=== PATIENT | male | born 1960 | race Caucasian/White ===

== ENCOUNTER → 2024-07-09 12:51 | Outpatient (REF) | payer MEDICARE, SELFPAY | LOC: RAD 12:51 | PROVIDERS: ATTENDING PHYSICIAN Urology | DX: N39.0 Urinary tract infection, site not specified (principal) | CPT/HCPCS: 74176 ==

== ENCOUNTER → 2024-12-06 07:08 | Outpatient (REF) | payer MEDICARE, SELFPAY | LOC: RAD 07:08 | PROVIDERS: ATTENDING PHYSICIAN Family Medicine; FAMILY PHYSICIAN Nurse Practitioner Gerontology | DX: M79.661 Pain in right lower leg (principal); S76.311A Strain of muscle, fascia and tendon of the posterior muscle group at thigh level, right thigh, initial encounter | CPT/HCPCS: 93971 ==

== ENCOUNTER → 2024-12-24 17:06 | Outpatient (REF) | payer MEDICARE, SELFPAY | LOC: RAD 17:06 | PROVIDERS: ATTENDING PHYSICIAN Nurse Practitioner Gerontology | DX: I10 Essential (primary) hypertension (principal); E78.2 Mixed hyperlipidemia; M25.561 Pain in right knee; S76.311A Strain of muscle, fascia and tendon of the posterior muscle group at thigh level, right thigh, initial encounter; E03.9 Hypothyroidism, unspecified; E11.65 Type 2 diabetes mellitus with hyperglycemia | CPT/HCPCS: 73502; 73564 ==

== ENCOUNTER 2025-02-13 16:31 | Emergency (ER) | payer MEDICARE, SELFPAY ==
[2025-02-13 16:31] VITALS: BMI 30.1
[2025-02-13 16:33] VITALS: BP 164/102
[2025-02-13 16:57] LABS: Urine Albumin 1+ (Neg - Trace); Urine Bilirubin Negative (Negative); Urine Character Clear (Clear); Urine Color Yellow; Urine Glucose Negative (Negative); Urine Ketone Negative (Negative); Urine Leukocyte 2+ (Negative); Urine Nitrite Negative (Negative); Urine Occult Blood Negative (Negative); Urine Urobilinogen Negative (Neg - 1+)
[2025-02-13 17:31] LABS: Urine Mucus Moderate; Urine Squamous Cell 0-2 /LPF (Few)
[2025-02-13 17:32] LABS: Urine Red Blood Cell 0-2 /HPF (0-2)
[2025-02-13 17:33] LABS: Urine Bacteria Moderate (Negative); Urine Sperm Seen; Urine White Cell 50-60 /HPF (0-5)
[2025-02-13 17:58] VITALS: BP 141/86
[2025-02-13 18:00] VITALS: BP 131/84; BP 141/86
[2025-02-13 18:30] VITALS: BP 127/76
[2025-02-13] MEDS: NSS 1000 IV (18:36)
[2025-02-13 18:47] LABS: % Basophils 0.4 % (0-2); % Eosinophils 1.3 % (0-6); % Immature Granulocytes 0.5 % (0-0.5); % Lymphocytes 27.6 % (20.5-51.1); % Monocytes 7.9 % (1.7-9.3); % Neutrophils 62.3 % (42.2-75.2); Absolute Eosinophils 0.1 10^3/uL (0-0.7); Absolute Immature Granulocytes 0.1 10^3/uL (0-0.05); Absolute Lymphocytes 2.5 10^3/uL (1.2-3.4); Absolute Monocytes 0.7 10^3/uL (0.1-0.6); Absolute Neutrophils 5.7 10^3/uL (1.4-6.5); Hemoglobin 12.6 g/dL (13.0-18.0); Mean Corpuscular Hgb 30.8 pg (27.0-31.0); Mean Corpuscular Volume 85.6 fL (80.0-94.0); Mean Platelet Volume 9.4 fL (7.4-10.4); Nucleated Red Blood Cells % 0 % (-); Platelet Count 200 10^3/uL (130-400); Red Blood Cell Count 4.09 10^6/uL (4.70-6.10); Red Cell Dist. Width 13.1 % (11.5-14.5); White Blood Cell Count 9.1 10^3/uL (4.8-10.8)
[2025-02-13 18:59] LABS: Lactic Acid 0.8 mmol/L (0.7-2.0)
[2025-02-13 19:00] VITALS: BP 153/83
[2025-02-13 19:11] LABS: ALT (SGPT) 39 U/L (0-50); AST (SGOT) 36 U/L (17-59); Albumin 4.4 g/dl (3.5-5.0); Alkaline Phosphatase 112 U/L (38-126); Blood Urea Nitrogen 21 mg/dl (9-20); Calcium 9.3 mg/dl (8.4-10.2); Carbon Dioxide 27 mmol/L (22-30); Chloride 107 mmol/L (98-107); Estimated Creatinine Clearance 102 ml/min; Glucose 109 mg/dl (70-99); Potassium 3.9 mmol/L (3.5-5.1); Sodium 140 mmol/L (135-145); Total Bilirubin 1.1 mg/dl (0.2-1.3); Total Protein 6.9 g/dl (6.3-8.2); eGFR > 60.00
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
[2025-02-13] MEDS: ROCEPHIN 1000 MG IV (20:05)
[2025-02-13 20:40] VITALS: BP 140/94
== END 2025-02-13 20:49 | disposition home or self-care (01) ==
LOC: EMR 16:31
PROVIDERS: Emergency Medicine; Physician Assistant; EMERGENCY PHYSICIAN Emergency Medicine
DX: N39.0 Urinary tract infection, site not specified (principal); I10 Essential (primary) hypertension; N28.1 Cyst of kidney, acquired; Z87.442 Personal history of urinary calculi
CPT/HCPCS: 99284; 96374; 96361; 74176; 80053; 81003; 81015; 83605; 85025; 87086

== ENCOUNTER 2025-02-16 15:27 | Observation (INO) | payer MEDICARE, SELFPAY ==
[2025-02-16] VITALS (8 sets, daily range): BP systolic 128–153; BP diastolic 71–100; PULSE 80–85; BMI 30.2; BMI 29.5
[2025-02-16 11:16] LABS: Urine Albumin Negative (Neg - Trace); Urine Bilirubin Negative (Negative); Urine Character Clear (Clear); Urine Color Yellow; Urine Glucose Negative (Negative); Urine Ketone Negative (Negative); Urine Leukocyte Negative (Negative); Urine Nitrite Negative (Negative); Urine Occult Blood Negative (Negative); Urine Specific Gravity 1.015 (<1.030); Urine Urobilinogen Negative (Neg - 1+); Urine pH 6.5 (5.0-9.0)
[2025-02-16 11:53] LABS: % Basophils 0.8 % (0-2); % Eosinophils 2.7 % (0-6); % Immature Granulocytes 0.3 % (0-0.5); % Lymphocytes 30.2 % (20.5-51.1); % Monocytes 8.8 % (1.7-9.3); % Neutrophils 57.2 % (42.2-75.2); Absolute Basophils 0.1 10^3/uL (0-0.2); Absolute Eosinophils 0.2 10^3/uL (0-0.7); Absolute Lymphocytes 1.9 10^3/uL (1.2-3.4); Absolute Monocytes 0.6 10^3/uL (0.1-0.6); Absolute Neutrophils 3.6 10^3/uL (1.4-6.5); Hematocrit 38.1 % (39.0-52.0); Hemoglobin 13.5 g/dL (13.0-18.0); Mean Corp Hgb Conc. 35.4 g/dL (33.0-37.0); Mean Corpuscular Hgb 30.4 pg (27.0-31.0); Mean Corpuscular Volume 85.8 fL (80.0-94.0); Mean Platelet Volume 9.5 fL (7.4-10.4); Nucleated Red Blood Cells % 0 % (-); Platelet Count 194 10^3/uL (130-400); Red Blood Cell Count 4.44 10^6/uL (4.70-6.10); Red Cell Dist. Width 13.1 % (11.5-14.5); White Blood Cell Count 6.3 10^3/uL (4.8-10.8)
[2025-02-16 12:11] LABS: ALT (SGPT) 39 U/L (0-50); AST (SGOT) 36 U/L (17-59); Albumin 4.5 g/dl (3.5-5.0); Alkaline Phosphatase 117 U/L (38-126); Blood Urea Nitrogen 20 mg/dl (9-20); Calcium 9.1 mg/dl (8.4-10.2); Carbon Dioxide 28 mmol/L (22-30); Chloride 105 mmol/L (98-107); Estimated Creatinine Clearance 115 ml/min; Glucose 109 mg/dl (70-99); Potassium 4.3 mmol/L (3.5-5.1); Sodium 138 mmol/L (135-145); Total Bilirubin 1.2 mg/dl (0.2-1.3); eGFR > 60.00
[2025-02-16 12:12] LABS: COVID-19 Antigen Negative (Negative)
--- NOTE | 2025-02-16 14:13 | ED.GENMED ---
History of Present Illness
General
Chief Complaint: Urinary Symptoms
Time Seen by Provider: 02/16/25 09:58
History of Present Illness
History of Present Illness:
see mdm
Past History
Past History
ED Past Medical History: HTN and Other (uti)
ED Past Surgical History: Orthopedic
Social History
Alcohol: None
Drug: None
Personal:
Phy Exam
Physical Exam
Physical Exam:
see mdm
Course
Orders/Labs/Results
Orders:
Orders
02/16/25 10:56
Urinalysis Reflex To Culture Urgent
Date Specimen was Collected: 02/16/25
Time Specimen was Collected: 10:47
02/16/25 11:12
CT Head W/o Iv Contrast Urgent
Comment:
Reason For Exam: 'out of sorts', dizziness;
CR Chest - 2 Views Urgent
Comment:
Reason For Exam: cough
02/16/25 11:37
COVID-19 Antigen Urgent
Source: Nasal Swab
Complete Blood Count/With Diff Urgent
Comprehensive Metabolic Panel Urgent
Lactic Acid Urgent
Lyme Progressive Urgent
Comment: ADDON
Blood Culture Q30M
SUMAN Source: Blood/Venous
Specimen Description:
Blood Culture Q30M
SUMAN Source: Blood/Venous
Specimen Description:
Influenza A+B Rapid Molecular Urgent
SUMAN Source: Nasal Swab
Specimen Description:
02/16/25 12:19
Add On- LAB Urgent
Tests Added?: lyme progressive
02/16/25 14:12
Meclizine [Antivert] 25 mg PO NOW STA
02/16/25 14:28
Electrocardiogram (*1) Urgent
Reason for Study: Vertigo / Dizzy
EKG- Treatment ONCE
Aspirin 325 mg PO NOW STA
Abnormal Lab Results
02/16/25
11:37
RBC 4.44 L 10^6/uL
(4.70-6.10)
Hct 38.1 L %
(39.0-52.0)
Glucose 109 H mg/dl
(70-99)
02/16/25 11:37
02/16/25 11:37
Vital Signs
Initial and Last Documented VS:
Initial Vital Signs
Temp Pulse Resp BP Pulse Ox
36.6 C 96 18 145/100 96
02/16/25 09:44 02/16/25 09:44 02/16/25 09:44 02/16/25 09:44 02/16/25 09:44
Last Documented Vital Signs
Temp Pulse Resp BP Pulse Ox
36.6 C 77 20 143/81 97
02/16/25 09:44 02/16/25 12:00 02/16/25 10:00 02/16/25 12:36 02/16/25 14:14
MDM/Problems Addressed
Differential Diagnosis Includes:
see Mdm
MDM/Problems Addressed:
Note:
CHIEF COMPLAINT(S)
Dizziness, sensation of head fullness, speech changes, abdominal pain, cough, and body aches.
HISTORY OF PRESENT ILLNESS
Patient is a 64-year-old male with a history of multiple back surgeries, hypertension, UTIs who presents for the second time in 3 days for feeling not well. Initially 3 days ago he had described feeling a little goofy, some nausea, upper
respiratory symptoms as well as a flank pain that could have been similar to a previous kidney stone. His says he was behaving slightly differently when he has had previous UTIs before so that is what she thought. He was not having any
dysuria at the time. His urinalysis was positive and other labs were unremarkable and the patient was sent home on cefdinir. Patient says he is continued to have the same symptoms but primarily is now experiencing a lightheadedness especially when
he is up and moving around that is making it harder to walk. He says he feels congested especially in his sinuses which she is describing as 'fullness in his head' and he is taking Coricidin without any improvement. Patient says he feels the same
as before and not any better. He has not had a new fever, chest pain, neck pain, syncope, rash, severe headache
Patient is never had vertigo before. He has never had a stroke.
when asked about his slurred speech, he initially didn't notice it but then He can appreciate that his speech is a little bit more difficult than baseline.
SOCIAL DETERMINANTS AFFECTING HEALTH
The patient mentions inability to participate in activities with grandchildren due to dizziness.
REVIEW OF SYSTEMS
- Neurological: Dizziness, speech changes
- Respiratory: Cough with mucus production
- Gastrointestinal: Abdominal pain, no diarrhea
- Musculoskeletal: Generalized body aches
- Ear/Nose/Throat: Head fullness, chronic perforated eardrum
PHYSICAL EXAM
ent: no evidence of congestion, L TM obscurred by wax, pharynx normal
resp: no resp distress, clear, no cough
- Neurological: Slight asymmetry noted at the corner of the mouth; occ dysarthria; 5/5 strenght; ambulation intact; otherwise no focal deficits noted on brief assessment; no ataxia
? subtle nystagmus on upward gaze??
- Abdominal: Non-tender upon palpation.
PLAN
A head scan is planned to explore potential neurological causes, and further tests will be performed to identify any alternative infection sites since urine cultures did not grow bacteria.
DIFFERENTIAL DIAGNOSIS
The Differential Diagnosis includes, in no particular order and is not limited to:
1. Vestibular dysfunction
2. Sinusitis with postnasal drip
3. Labyrinthitis
4. Migraine variant
5. Transient Ischemic Attack (TIA)
6. Bacterial or viral upper respiratory infection
7. Gastroenteritis
8. Medication side effects
9. Inner ear infection
10. Cervical spine issues affecting balance/neurology
11. COVID-19 related symptoms
CARE-UPDATE
02/16/25 - 14:17
The patients labs and U.A. show no signs of infection. COVID and flu tests are negative. Despite his reports of nasal and sinus congestion, the examination shows no related symptoms. He exhibits dysarthria and a slight downturn of the right mouth
corner, possibly chronic. While he can smile symmetrically, the combination of dizziness, mild facial droop, and slurred speech raises concerns about a potential stroke. A CT scan was negative. Patient agreed to hospital admission for an MRI.
Possibility of URI with vertigo considered; Meclizine prescribed. Subtle nystagmus observed on upward gaze.
*Pulse Oximetry
SaO2: 97
Oxygen Mode of Delivery: Room air
Patient hypoxic: no
Comment: 97
*Critical Care Note
Total Time (30-74mins, 75-104mins- exclusive of procedures): Not Applicable
ED Attending Note
-
Portions of this chart may have been created with voice recognition software.� Occasional wrong word or��sound alike� substitutions may have occurred due to the inherent limitations of voice recognition software.
Discharge Plan
Departure
Patient Disposition: Admit
Date of Disposition: 02/16/25
Time of Disposition: 14:27
Admit to: Telemetry
Presentation/result/management discussed w/ accepting MD/DO: Hospitalist
Condition: Fair
Covid-19: Not Applicable
Discharge Problem:
Dizziness, Dysarthria
Prescriptions:
No Action
cefdinir 300 mg capsule
300 mg PO BID Qty: 20 0RF
Referrals:
Rhianna Perdue CRNP [Family Provider, Family Practice]
Interventions
Interventions:
*Risk Screen - Suicide Last Done: 02/16/25 09:44
*General Assessment Last Done: 02/16/25 09:44
*Neglect/Abuse Screening Last Done: 02/16/25 09:44
ED-Male Genitourinary Assessment Last Done: 02/16/25 12:44
ED- Neurological Assessment Last Done: 02/16/25 12:44
Discharge Date and Time
Print Language: DANISH
--- NOTE | 2025-02-16 14:46 | HPS.HSE ---
Family Physician
-
Family Physician: DAHLIA Fernandez
Chief Complaint
-
Dizziness and off balance of both legs.
History of Present Illness
64M HX HTN was seen 0n 02/14/24 at ER DC'd on Cefdinir 300mg BID for Dx UTI.
Subjectively no progress with ABx.
Reports Dizziness with standing , subjective off balance of both leg but able to ambulate with no issues, even he can do sqauting
02/13/25 NEG UCX
pulled off Tick from the neck one week ago
Medical History
Past Medical History
Past Medical History: Reports HTN
Past Surgical History: Reports None
Social History
Alcohol: None
Drug: None
Family History
Family History: Not pertinent
Allergies / Home Medications
Allergies reflects when Allergies were last updated in [facility].
Home Medications with original date entered in [facility]
Allergy/Medication List:
Allergies
Allergy/AdvReac Type Severity Reaction Status Date / Time
morphine Allergy Unknown Verified 02/16/25 09:44
Penicillins Allergy Unknown Verified 02/16/25 09:44
Home Medications
cefdinir 300 mg capsule 300 mg PO BID #20 caps 02/13/25
Review of Systems
-
Constitutional: Reports No Symptoms
EENT: Reports No Symptoms
Respiratory: Reports No Symptoms
Cardiac: Reports No Symptoms
Abdomen/GI: Reports No Symptoms
: Reports No Symptoms
Musculoskeletal: Reports No Symptoms
Skin: Reports No Symptoms
Neurological: Reports Dizzy and Other (walking balance is off )
Endocrine: Reports No Symptoms
Hematologic/Lymphatic: Reports No Symptoms
Psych: Reports No Symptoms
Physical Exam
Vital Signs
Vital Signs
Temp Pulse Resp BP Pulse Ox
97.8 F 77 20 143/81 97
02/16/25 09:44 02/16/25 12:00 02/16/25 10:00 02/16/25 12:36 02/16/25 14:14
Physical Exam
General: Well Developed, Well Nourished and No Apparent Distress
HEENT: NormoCephalic, Moist mucous membranes and Atraumatic
Respiratory: Clear
Cardiac: S1/S2 and Regular Rhythm; No Murmur or Rub
GI: Soft, Non Tender, Non Distended and Normal Bowel Sounds; No Organomegaly
Rectal: Deferred by Provider
Musculoskeletal: No Clubbing, No Cyanosis and No Edema
Skin: No Rash
Neuro: AO x 3, No Motor Deficits and Other (asymmetric angle of the mouth , nl speech and language function )
Laboratory Results
-
02/16/25 11:37
02/16/25 11:37
Laboratory Results
Lactic Acid 1.0 mmol/L (0.7-2.0) 02/16/25 11:37
Total Bilirubin 1.2 mg/dl (0.2-1.3) 02/16/25 11:37
AST 36 U/L (17-59) 02/16/25 11:37
ALT 39 U/L (0-50) 02/16/25 11:37
Alkaline Phosphatase 117 U/L (38-126) 02/16/25 11:37
Data Reviewed
-
Diagnostic Radiology: Report Reviewed by me
CT Scan: Report Reviewed by me
Lab Data: Labs Reviewed by me
Impression/Plan
-
Relevant VS:
02/16/25
09:44
Temp 97.8 F
Pulse 96
Resp Rate 18
Blood pressure 145/100
SaO2 96
Oxygen Mode of Delivery Room air
Relevant Data
02/16/25
11:37
WBC 6.3
Hgb 13.5
Plt Count 194
Creatinine 0.7
eGFR > 60.00
Progreesive Lyme
BCX sent
EKG
HCT
No acute intracranial abnormality noted.
CXR
1. No radiographic evidence for pneumonia, acute pulmonary edema, or pleural effusion.
2. Mild subsegmental atelectasis/scarring in the right middle lobe.
3. Previous instrumentation and fusion in the cervical and lumbar spine.
Last hospitalist admission:
ASSESSMENT & PLAN
Pending Rx reconciliation
Dizziness origin uncertain
Subjective ambulatory balance dysfunction but able to ambulate with no issues, able to squat with no issues
Asymmetric angle of the mouth
nl speech and language function
- unremarkable VSS
- Non focal motor or sensory deficit
- NEG HCT
- Unremarkable Labs
- check Ortho VSS
- c/w baby ASA
- Brain MRI in AM - to consider Neuro consult if abn MRI
- PT/OT
HX Tick exposure - reports pulled off Tick from his neck one week ago but not bitten
- progressive lyme at ER
Recent Dx UTI - NEG UCx as of 02/13
- stop Cefdinir
HX HTN
- Not on any Meds
- Observe BP
DVT Px: SQH
Code: ful code
OBS TLM
[2025-02-16] MEDS: ANTIVERT 25 MG PO (14:52)
[2025-02-16] MEDS: ASPIRIN 325 MG PO (14:52)
--- NOTE | 2025-02-16 16:02 | CM ---
Addendum entered by Ofe Mitchell 02/16/25 16:08:
OBS/WARD form provided to patient to review and sign.
Original Note:
Patient seen at bedside in ED with present. Patient lives in 2 story home with 15 steps to bedroom. Patient PCP is Dr. Higgins and he has no DME at home. Patient uses the [facility] in [place] for pharmacy needs. Patient reviewed
OBS/WARD status and stated that he had met his deductable for the year but understood that he may have copays. CM will provide OBS/WARD form. Patient has not had any DME in the past or VN needs. CM will continue to follow for discharge planning
needs.
Plan; home with no needs vs VN pending medical treatment plan
[2025-02-16] MEDS: TYLENOL 650 MG PO ×2 (16:44→21:16)
[2025-02-16] MEDS: NSS 1000 IV (16:45)
[2025-02-16] MEDS: HEPARIN 5000 UNITS SC (16:49)
--- NOTE | 2025-02-16 18:20 | PTCARENOTE ---
Pt arrived to floor from ED via stretcher. Ambulated to unit bed with minimal assistance. NIHSS 2. Pt with facial asymmetry (right side) and mild dysarthria. Pt states facial asymmetry is baseline. PRN Tylenol provided for 3/10 headache pain. Pt
states 1/10 headache on follow up assessment. SaO2 97% on room air. Sinus rhythm on ekg monitor tech. No edema. Palpable pulses. 1L NSS bolus administered through (R) AC #20 per order.
[2025-02-17] MEDS: HEPARIN 5000 UNITS SC ×2 (00:52→07:54)
[2025-02-17 04:27] VITALS: BP 142/78
[2025-02-17 07:25] VITALS: BP 152/92
[2025-02-17 07:47] LABS: HDL Cholesterol 45 mg/dl; LDL Cholesterol, Calculated 111 mg/dl; Total Cholesterol 196 mg/dl (50-199); Triglyceride 202 mg/dl (10-149); Very Low Density Lipoprotein 40 mg/dl (0-30)
[2025-02-17] MEDS: LOW STRENGTH ASPIRIN 81 MG PO (07:54)
[2025-02-17] MEDS: TYLENOL 650 MG PO (07:58)
--- NOTE | 2025-02-17 08:40 | PTOTSP ---
Speech Language Pathology
Pt seen for speech/language evaluation. Pt with mild dysarthria. Language evaluated via the Quick Aphasia Battery (QAB), form 1. Pt with an overall score of 9.33, indicative of skills WNL.
Pt also seen for clinical bedside swallow evaluation. P.O. trials of regular solids and thin liquids provided. Adequate mastication, bolus formation, and A-P transit noted with no oral residue. No overt signs of aspiration.
Recommend:
(1) Regular solids/thin liquids
(2) General aspiration precautions
(3) Meds as tolerated
(4) MANPOWER DEVELOPMENT ADVISOR to continue to follow for dysarthria
[2025-02-17 08:49] LABS: Glycohemoglobin (HgbA1c) 6.6 % (4.0-5.6)
[2025-02-17 09:34] VITALS: BP 146/96; PULSE 84
[2025-02-17 09:48] VITALS: BP 146/96; PULSE 79; O2SAT 98
[2025-02-17 10:17] LABS: TSH Reflex To Free T4 1.96 uIU/ml (0.47-4.68)
[2025-02-17 11:00] VITALS: BP 140/86
--- NOTE | 2025-02-17 11:18 | W.PN.HOSP.TC ---
Addendum entered and electronically signed by Elliot Cedeno MD 02/17/25 15:53:
Patient instructed to follow-up with his spine physician outpatient
Addendum entered and electronically signed by Elliot Cedeno MD 02/17/25 14:51:
Lyme test negative
MRI with chronic lacunar infarct. No new infarct or hemorrhage. Severe right maxillary sinusitis. Discussed with patient and will prescribe him antibiotics for sinusitis. Also advised him to continue to take aspirin. Will give neurology
follow-up given previous infarct. Patient currently is feeling better and wants to go home.
Time of discharge 38 minutes
Original Note:
Today's Communication/Plan
-
Monitor vital signs see plan
MRI pending
Continue aspirin
PT/OT
Assessment / Plan
Assessment / Plan
General: Well Developed, Well Nourished and No Apparent Distress
HEENT: NormoCephalic, Moist mucous membranes and Atraumatic
Respiratory: Clear
Cardiac: S1/S2 and Regular Rhythm; No Murmur or Rub
GI: Soft, Non Tender, Non Distended and Normal Bowel Sounds
Musculoskeletal: No Edema
Neuro: AO x 3, No Motor Deficits
Dizziness
Subjective ambulatory balance dysfunction but able to ambulate with no issues, able to squat with no issues
Asymmetric angle of the mouth
per patient had some slurred speech which has resolved
- unremarkable VSS
- Non focal motor or sensory deficit
- NEG HCT
Continue with baby aspirin
- Brain MRI- to consider Neuro consult if abn MRI
- PT/OT, vestivbular therapy to see if improves however he denies typical vertigos
History of recent UTI, was on cefdinir. DC further antibiotics. Repeat ua neg
History of hypertension
Continue amlodipine
Hold losartan/hydrochlorothiazide for now
Hyperlipidemia
Continue Crestor
Multiple back surgeries
Monitor
Diabetes mellitus
Hold metformin
Insulin sliding scale, Accu-Cheks
HX Tick exposure - reports pulled off Tick from his neck one week ago but not bitten
- lyme titer pending
Hypothyroidism
Continue Synthroid
Recent Dx UTI - NEG UCx as of 02/13
- stop Cefdinir
DVT Px: SQH
Code: ful code
Anticipated Discharge: Within 24 hours
Subjective/Interval History
-
Date of Service: February 17, 2025
Still has mild dizziness however improving
Objective Data
-
Vital Signs:
Vital Signs
Temp Pulse Resp BP Pulse Ox
98.2 F 73 20 140/86 98
02/17/25 11:00 02/17/25 11:00 02/17/25 11:00 02/17/25 11:00 02/17/25 11:00
I&O
02/16/25 02/17/25 02/18/25
06:59 06:59 06:59
Intake Total 960 / 960
Balance 960 / 960
[2025-02-17] MEDS: VITAMIN B-6 200 MG PO (11:51)
[2025-02-17] MEDS: MAG-TAB SR 84 MG PO (11:51)
[2025-02-17] MEDS: VITAMIN D3 (cholecalciferol) 100 MCG PO (11:51)
[2025-02-17] MEDS: NORVASC 5 MG PO (11:51)
[2025-02-17] MEDS: THERAGRAN 1 TABLET PO (11:51)
[2025-02-17] MEDS: PEPCID 20 MG PO (11:51)
[2025-02-17 11:52] LABS: Glucose - Point of Care 118 mg/dl (70-99)
[2025-02-17 13:43] LABS: Lyme Antibody Screen, EIA Negative (Negative)
--- NOTE | 2025-02-17 14:53 | CM ---
Chart reviewed. Plan for patient to d/c today.
Per PT, no skilled needs
Patient agreeable to d/c today
No CM needs identified at this time
Plan: Home, no needs
--- NOTE | 2025-02-17 15:00 | W.DCSUMMARY ---
Discharge Summary
Discharge Data
Date of Admission: 02/16/25
Date of Discharge: 02/17/25
-
Pending Results: No
Hospital Course
64-year-old male with past medical history of multiple back surgery, diabetes mellitus, hypothyroidism, history of UTI, hypertension, hyperlipidemia came to the hospital with subjective ambulatory dysfunction along with dizziness. Patient also has
subjective slurred speech which was resolved on this hospitalization. Patient initially had a negative head CT scan. Brain MRI was also done which was negative for any acute CVA however it did show chronic CVA. Patient was instructed to follow-up
with neurology outpatient. MRI was also consistent with possible acute sinusitis for which patient was started on antibiotics. Patient symptoms continue to improve while he was in the hospital. On the MRI he also had chronic spine compression for
which she was instructed to follow-up with his outpatient physician. Since patient symptoms continue improve, he was then discharged home with instructions to follow-up with all his physicians outpatient.
Discharge Plan
-
Patient Disposition: Home (Routine Discharge)
Discharge Diagnosis/Procedures: Dizziness
Chronic lacunar infarct
Acute sinusitis
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
Diet: As tolerated
Activity: As tolerated
Driving Restrictions: As prior to admission
Bathing Restrictions: None
Activity Restrictions/Additional Instructions:
Follow-up with your spine physician outpatient
Referrals:
Riley Kahn MD [Active, Neurology] - in two weeks
Shannon Chowdary MD [Active, Otology]
Rhianna Perdue CRNP [Family Provider, Family Practice] - in less than 1 week
Prescriptions:
New
fluticasone propionate [Flonase Allergy Relief] 50 mcg/actuation spray,suspension
1 spray intranasal Q12H Qty: 16 0RF
cefdinir 300 mg capsule
300 mg PO BID Qty: 10 0RF
doxycycline hyclate 100 mg capsule
100 mg PO BID Qty: 10 0RF
Probiotic 10 billion cell capsule
10,000 mmu cells PO DAILY Qty: 10 0RF
Continued
therapeutic multivitamin Tablet
1 tab PO DAILY
amlodipine [Norvasc] 5 mg Tablet
5 mg PO DAILY
aspirin 81 mg Tablet,Delayed Release (Dr/Ec)
81 mg PO DAILY
levothyroxine [Synthroid] 125 mcg Tablet
125 mcg PO DAILY
pyridoxine (vitamin B6) 100 mg Tablet
200 mg PO DAILY
metformin 500 mg Tablet Extended Release 24 Hr
500 mg PO QPM
fhpjunnkb-TEQ-qtcibcyxwwcuh Tablet
2 tab PO DAILYPRN PRN (Reason: cough)
rosuvastatin [Crestor] 20 mg Tablet
20 mg PO QPM
cholecalciferol (vitamin D3) 100 mcg (4,000 unit) Capsule
100 mcg PO DAILY
coQ10 (ubiquinol) 100 mg Capsule
100 mg PO DAILY
magnesium oxide 400 mg magnesium Tablet
400 mg PO DAILY
famotidine [Pepcid] 20 mg Tablet
20 mg PO DAILY
Held
losartan-hydrochlorothiazide 100-25 mg Tablet
1 tab PO DAILY
Hold Instructions: Restart when blood pressure is greater than 140/90
Discontinued
cefdinir 300 mg capsule
300 mg PO BID Qty: 20 0RF
Rx Instructions:
patient to start 02/13/25 for 10 days
Discharge Orders:
Discharge Patient (As Directed); Ordered 02/17/25
Ordered By: Elliot Cedeno
Discharge Date and Time
Discharge Date/Time: 02/17/25 16:22
Print Language: SYRIAC
[2025-02-17 15:30] VITALS: BP 136/92
[2025-02-17] MEDS: PREVNAR 20 0.5 ML IM (15:39)
== END 2025-02-17 16:22 | disposition home or self-care (01) ==
LOC: 4 WEST ACU 15:27
PROVIDERS: Physician Assistant; ADMITTING PHYSICIAN Internal Medicine; ATTENDING PHYSICIAN Internal Medicine; EMERGENCY PHYSICIAN Emergency Medicine; FAMILY PHYSICIAN Nurse Practitioner Gerontology
DX: R42 Dizziness and giddiness (principal); Z11.52 Encounter for screening for COVID-19; Z86.73 Personal history of transient ischemic attack (TIA), and cerebral infarction without residual deficits; E78.5 Hyperlipidemia, unspecified; E11.9 Type 2 diabetes mellitus without complications; E03.9 Hypothyroidism, unspecified; J01.90 Acute sinusitis, unspecified
CPT/HCPCS: 70450; 70553; 71046; 80053; 80061; 81003; 82962; 83036; 83605; 84443; 85025; 86618; 87040; 87502; 87811; 90677; 92523; 92610; 93005; 97162; 97166; 99285; A9575; G0009; G0378

== ENCOUNTER 2025-02-22 15:28 | Emergency (ER) | payer MEDICARE, SELFPAY ==
[2025-02-22 15:31] VITALS: BP 161/93
[2025-02-22 15:47] LABS: % Basophils 0.6 % (0-2); % Eosinophils 1.9 % (0-6); % Immature Granulocytes 0.5 % (0-0.5); % Monocytes 7.9 % (1.7-9.3); % Neutrophils 60.1 % (42.2-75.2); Absolute Basophils 0.1 10^3/uL (0-0.2); Absolute Eosinophils 0.2 10^3/uL (0-0.7); Absolute Immature Granulocytes 0.1 10^3/uL (0-0.05); Absolute Lymphocytes 2.7 10^3/uL (1.2-3.4); Absolute Monocytes 0.7 10^3/uL (0.1-0.6); Absolute Neutrophils 5.7 10^3/uL (1.4-6.5); Hematocrit 37.1 % (39.0-52.0); Hemoglobin 13.6 g/dL (13.0-18.0); Mean Corp Hgb Conc. 36.7 g/dL (33.0-37.0); Mean Corpuscular Hgb 31.7 pg (27.0-31.0); Mean Corpuscular Volume 86.5 fL (80.0-94.0); Mean Platelet Volume 9.3 fL (7.4-10.4); Nucleated Red Blood Cells % 0 % (-); Platelet Count 233 10^3/uL (130-400); Red Blood Cell Count 4.29 10^6/uL (4.70-6.10); Red Cell Dist. Width 13.2 % (11.5-14.5); White Blood Cell Count 9.4 10^3/uL (4.8-10.8)
[2025-02-22 16:02] LABS: ALT (SGPT) 42 U/L (0-50); AST (SGOT) 35 U/L (17-59); Albumin 4.5 g/dl (3.5-5.0); Alkaline Phosphatase 106 U/L (38-126); Blood Urea Nitrogen 19 mg/dl (9-20); Calcium 9.4 mg/dl (8.4-10.2); Carbon Dioxide 28 mmol/L (22-30); Chloride 103 mmol/L (98-107); Glucose 129 mg/dl (70-99); Potassium 3.6 mmol/L (3.5-5.1); Sodium 139 mmol/L (135-145); Total Bilirubin 1.2 mg/dl (0.2-1.3); Total Protein 7.1 g/dl (6.3-8.2); eGFR > 60.00
[2025-02-22 16:14] LABS: Troponin I < 0.012 ng/ml
[2025-02-22 17:22] VITALS: BP 172/107; BMI 29.5
[2025-02-22 18:00] VITALS: BP 151/88
--- NOTE | 2025-02-22 18:29 | ED.GENMED ---
History of Present Illness
General
Chief Complaint: Dizziness
Source: patient
Time Seen by Provider: 02/22/25 18:08
History of Present Illness
History of Present Illness:
64-year-old male presents complaining of chest pressure that started about 3 hours prior to my exam with associated headache and postnasal drip. He was recently admitted to this hospital for dizziness and found to have sinusitis. He recently
finished an antibiotic for his sinus. He was exposed to more allergens yesterday and he feels as though his sinusitis flared up again. He denies any current chest pressure. No nausea or diaphoresis. No leg swelling or calf pain. His workup when
he was admitted he had an MRI of his brain which showed a chronic infarct as well as acute sinusitis. No fevers. No cough no shortness of breath
Past History
Past History
ED Past Medical History: HTN and Other (uti)
ED Past Surgical History: Orthopedic
Social History
Alcohol: None
Drug: None
Personal:
Phy Exam
Physical Exam
Physical Exam:
General: Well-appearing male no acute respiratory distress HEENT: Normocephalic atraumatic no trismus or drooling. Face is symmetric
Heart: Regular rate and rhythm extremities: No cyanosis
Neurologic: Alert and oriented
Course
Orders/Labs/Results
Orders:
Orders
02/22/25 15:35
Electrocardiogram (*1) Urgent
Reason for Study: Chest Pain
Cardiac Monitoring- Treatment ONCE
EKG- Treatment ONCE
IV Insert/Care/Rem.- Treatment PRN
O2 Therapy [RESP] Urgent
Titrate/Wean O2 to maintain O2 sat greater than (%): 90
Special Instructions: Maintain sats >/=90%
Pulse Ox/spot Check [RESP] Urgent
Quantity: 1
Special Instructions: ON ROOM AIR
02/22/25 15:41
Complete Blood Count/With Diff Urgent
Comprehensive Metabolic Panel Urgent
Troponin I Urgent
02/22/25 19:07
CR Chest - 2 Views Urgent
Comment:
Reason For Exam: chest pain
02/22/25 19:31
Troponin I Urgent
Abnormal Lab Results
02/22/25
15:41
RBC 4.29 L 10^6/uL
(4.70-6.10)
Hct 37.1 L %
(39.0-52.0)
MCH 31.7 H pg
(27.0-31.0)
Abs Immat Gran (auto) 0.1 H 10^3/uL
(0-0.05)
Absolute Monos (auto) 0.7 H 10^3/uL
(0.1-0.6)
Glucose 129 H mg/dl
(70-99)
02/22/25 15:41
02/22/25 15:41
Vital Signs
Initial and Last Documented VS:
Initial Vital Signs
Temp Pulse Resp BP Pulse Ox
98.1 F 94 18 161/93 98
02/22/25 15:31 02/22/25 15:31 02/22/25 15:31 02/22/25 15:31 02/22/25 15:31
Last Documented Vital Signs
Temp Pulse Resp BP Pulse Ox
98.1 F 81 19 151/94 96
02/22/25 15:31 02/22/25 20:15 02/22/25 20:15 02/22/25 20:00 02/22/25 20:15
MDM/Problems Addressed
Differential Diagnosis Includes:
Patient presents with headache postnasal drip and chest pressure. Recent sinusitis which feels similar to his current symptoms. Chest pressure is gone. Will repeat troponin as the initial troponin was undetectable. Do not suspect ACS. Pain is
not pleuritic, do not suspect PE. Consider extending course of antibiotics for sinus infection
*Pulse Oximetry
SaO2: 93
Oxygen Mode of Delivery: Room air
Patient hypoxic: no
*Critical Care Note
Total Time (30-74mins, 75-104mins- exclusive of procedures): Not Applicable
Update Note
Update Note:
Initial and repeat troponin undetectable. Chest x-ray clear. Will extend patient's course of antibiotics for sinus infection. No indication for admission at this time
ED Attending Note
-
Portions of this chart may have been created with voice recognition software.� Occasional wrong word or��sound alike� substitutions may have occurred due to the inherent limitations of voice recognition software.
Discharge Plan
Departure
Patient Disposition: Home (Routine Discharge)
Date of Disposition: 02/22/25
Time of Disposition: 21:22
Patient with high blood pressure during this ER visit?: No
Discharge Problem:
Dizziness, Sinusitis
Instructions: Dizziness
Prescriptions:
New
cefdinir 300 mg capsule
300 mg PO BID Qty: 14 0RF
No Action
therapeutic multivitamin Tablet
1 tab PO DAILY
amlodipine [Norvasc] 5 mg Tablet
5 mg PO DAILY
aspirin 81 mg Tablet,Delayed Release (Dr/Ec)
81 mg PO DAILY
losartan-hydrochlorothiazide 100-25 mg Tablet
1 tab PO DAILY
levothyroxine [Synthroid] 125 mcg Tablet
125 mcg PO DAILY
pyridoxine (vitamin B6) 100 mg Tablet
200 mg PO DAILY
metformin 500 mg Tablet Extended Release 24 Hr
500 mg PO QPM
cbtspivur-EJA-hfitjpumjqlft Tablet
2 tab PO DAILYPRN PRN (Reason: cough)
rosuvastatin [Crestor] 20 mg Tablet
20 mg PO QPM
cholecalciferol (vitamin D3) 100 mcg (4,000 unit) Capsule
100 mcg PO DAILY
coQ10 (ubiquinol) 100 mg Capsule
100 mg PO DAILY
magnesium oxide 400 mg magnesium Tablet
400 mg PO DAILY
famotidine [Pepcid] 20 mg Tablet
20 mg PO DAILY
fluticasone propionate [Flonase Allergy Relief] 50 mcg/actuation spray,suspension
1 spray intranasal Q12H Qty: 16 0RF
cefdinir 300 mg capsule
300 mg PO BID Qty: 10 0RF
doxycycline hyclate 100 mg capsule
100 mg PO BID Qty: 10 0RF
Probiotic 10 billion cell capsule
10,000 mmu cells PO DAILY Qty: 10 0RF
Referrals:
Faustina Villasenor DO [Family Provider, Family Practice]
Activity Restrictions/Additional Instructions:
Continue antibiotics. Return if worse. Stay hydrated. Follow-up with your doctor otherwise
Interventions
Interventions:
*Risk Screen - Suicide Last Done: 02/22/25 15:31
*General Assessment Last Done: 02/22/25 17:21
*Neglect/Abuse Screening Last Done: 02/22/25 15:31
*ED- Fall Risk Assessment Last Done: 02/22/25 17:21
*ED COVID-19 Vaccine History Last Done: 02/22/25 17:21
ED- Neurological Assessment Last Done: 02/22/25 17:22
Discharge Date and Time
Print Language: ARABIC
[2025-02-22 19:00] VITALS: BP 149/95
[2025-02-22 20:00] VITALS: BP 151/94
[2025-02-22 20:00] LABS: Troponin I < 0.012 ng/ml
[2025-02-22 21:22] VITALS: BP 135/85
[2025-02-22] MEDS: OMNICEF 300 MG PO (21:37)
== END 2025-02-22 21:42 | disposition home or self-care (01) ==
LOC: EMR 15:28
PROVIDERS: Physician Assistant; Student in an Organized Health Care Education/Training Program; EMERGENCY PHYSICIAN Emergency Medicine; FAMILY PHYSICIAN Family Medicine
DX: J01.90 Acute sinusitis, unspecified (principal); R42 Dizziness and giddiness; R07.89 Other chest pain; I10 Essential (primary) hypertension; Z87.440 Personal history of urinary (tract) infections; Z86.73 Personal history of transient ischemic attack (TIA), and cerebral infarction without residual deficits; Z79.82 Long term (current) use of aspirin; Z88.5 Allergy status to narcotic agent; Z88.0 Allergy status to penicillin
CPT/HCPCS: 99285; 94760; 71046; 80053; 84484; 85025; 93005

== ENCOUNTER 2025-03-25 09:00 | Emergency (ER) | payer MEDICARE, SELFPAY ==
[2025-03-25 09:02] VITALS: BP 169/101
--- NOTE | 2025-03-25 09:47 | ED.GENMED ---
History of Present Illness
General
Chief Complaint: Flank Pain
Source: patient
Exam Limitations: none
Time Seen by Provider: 03/25/25 09:41
Nursing documentation reviewed up to this point in time: agreed with
History of Present Illness
History of Present Illness:
The patient is a 64-year-old male with history hypertension, diabetes, kidney stones who presents to the emergency department with 3 days of left leg pain. He states pain has been gradually worsening over the past 3 days and is relatively constant.
He describes a sharp, 'razor blade -like pain'. There is not much radiation of pain into the abdomen or groin. He states this pain does feel similar to prior history of kidney stones. He has had mild nausea although no episodes of vomiting. He
denies any fever or chills. No diarrhea or constipation. He denies any dysuria or hematuria
He has not had any chest pain or shortness of breath.
Patient was recently treated for a UTI approximately 1 month ago. He states the symptoms have resolved. He was also admitted to the hospital for disequilibrium and treated for a sinus infection.
Past History
Past History
ED Past Medical History: HTN and Other (uti)
ED Past Surgical History: Orthopedic
Social History
Alcohol: None
Drug: None
Personal:
Review of Systems
Review of Systems
Allergies reviewed?: Yes
All Other Systems: ROS reviewed and negative except as documented in HPI and ROS
Phy Exam
Physical Exam
Physical Exam:
Vitals: Hypertensive, otherwise vital signs stable. Afebrile
General: Patient is well appearing, no acute distress. Nontoxic appearing
Skin: Warm and dry, no rashes or lesions
Head: Normocephalic, atraumatic
Eyes: Sclera nonicteric.
Throat: Protecting airway
Neck: Normal ROM, no cervical spine tenderness, no meningismus
Cardiac: Regular rate and rhythm, no murmurs.
Pulm: Normal respiratory effort, no wheezes, rales, rhonchi heard on exam
Abdomen: Abdomen soft. Very mild tenderness in left mid abdomen without rebound tenderness or guarding. Mild reproducible tenderness in left flank area however no CVA tenderness. No rash or ecchymoses.
Extremities: No evidence of cyanosis or edema.
Neuro: AAOx3. Grossly intact.
Psychiatric: Normal affect.
Course
Orders/Labs/Results
Orders:
Orders
03/25/25 10:00
0.9% Sodium Chloride 1000 ml [Nss] 1,000 ml IV BOLUS
Ketorolac [Toradol] 15 mg IV NOW STA
Kidney US [US Renal Only W/O Bladder] Urgent
Comment:
Reason For Exam: Left flank pain, hx stones
03/25/25 10:11
Complete Blood Count/With Diff Urgent
Comprehensive Metabolic Panel Urgent
03/25/25 11:24
Urinalysis Reflex To Culture Urgent
Date Specimen was Collected: 03/25/25
Time Specimen was Collected: 11:23
03/25/25 11:46
Tamsulosin [Flomax] 0.4 mg PO NOW STA
Abnormal Lab Results
03/25/25
10:11
RBC 4.23 L 10^6/uL
(4.70-6.10)
Hct 37.4 L %
(39.0-52.0)
Carbon Dioxide 31 H mmol/L
(22-30)
Creatinine 0.6 L mg/dL
(0.7-1.3)
Glucose 126 H mg/dl
(70-99)
03/25/25 10:11
03/25/25 10:11
Vital Signs
Initial and Last Documented VS:
Initial Vital Signs
Temp Pulse Resp BP Pulse Ox
98.0 F 87 17 169/101 99
03/25/25 09:02 03/25/25 09:02 03/25/25 09:02 03/25/25 09:02 03/25/25 09:02
Last Documented Vital Signs
Temp Pulse Resp BP Pulse Ox
98.0 F 79 20 137/84 99
03/25/25 09:02 03/25/25 11:00 03/25/25 11:00 03/25/25 11:00 03/25/25 11:00
MDM/Problems Addressed
Differential Diagnosis Includes:
Not limited to: Renal colic, cystitis, pyelonephritis, muscle strain/spasm, zoster, etc.
MDM/Problems Addressed:
64-year-old male presenting with left flank pain for the past few days, progressively worsening. Feels similar to prior kidney stones. Mild nausea, however no vomiting, fevers, dysuria. Vitals and exam is above. Patient overall well appearing with
mild reproducible tenderness in left flank area. No rash or ecchymosis. Abdomen benign. Symptoms consistent with likely renal colic given patient history. Lower suspicion for acute intra-abdominal infection.
ED plan: check labs, urinalysis. Will give IV fluids and toradol pain.
Patient did recently have CT scan of abdomen about one month ago during hospitalization for UTI � will start with renal ultrasound to avoid further radiation and evaluate for evidence of instructing stone.
Update: labs reviewed. CBC and chemistry without clinically significant abnormalities. UA without evidence of infection. Renal US shows no evidence of definitive calculus however does note mild left sided hydro indicating likely obstructing stone.
Discussed with patient regarding suspected small kidney stone however unable to confirm and visualize exact location/size without CT scan. Shared decision utilized with patient who is comfortable holding off on CT scan for now. Patient currently
appears comfortable following.
He has lengthy history of kidney stones and feels comfortable with supportive care at home, pain management, and neurology follow up.
Strict return precautions discussed, including any signs of infection. He will follow up with his urologist who is out of network.
Chronic conditions affecting care:
Hypertension, history of kidney stones
Acute Exacerbation and/or Progression of Chronic Illness:
Acutely hypertensive
*Radiology
Radiology exam reviewed: radiology read reviewed
*Pulse Oximetry
SaO2: 99
Oxygen Mode of Delivery: Room air
Patient hypoxic: no
*EKG
Interpreted by ED Provider?: NA
*Steam Turbine Assembler Interpretation
Rate: Steam Turbine Assembler- N/A
*Critical Care Note
Total Time (30-74mins, 75-104mins- exclusive of procedures): Not Applicable
Data Reviewed
Review of Other/Old Records Reveals: Radiology Studies (CT report 02/13/2025-no obstructing uropathy, several left renal cysts noted)
ED Attending Note
-
Portions of this chart may have been created with voice recognition software.� Occasional wrong word or��sound alike� substitutions may have occurred due to the inherent limitations of voice recognition software.
Discharge Plan
Departure
Patient Disposition: Home (Routine Discharge)
Date of Disposition: 03/25/25
Time of Disposition: 11:50
Patient with high blood pressure during this ER visit?: Yes
Condition: Good
Discharge Problem:
Kidney stone on left side, Left flank pain
Instructions: Kidney Stones (DC), Flank Pain (DC), BLOOD PRESSURE
Prescriptions:
New
tamsulosin [Flomax] 0.4 mg capsule
0.4 mg PO DAILY 14 Days Qty: 14 0RF
ondansetron 4 mg tablet,disintegrating
4 mg PO Q8H PRN (Reason: nausea and vomiting) Qty: 5 0RF
No Action
therapeutic multivitamin Tablet
1 tab PO DAILY
amlodipine [Norvasc] 5 mg Tablet
5 mg PO DAILY
aspirin 81 mg Tablet,Delayed Release (Dr/Ec)
81 mg PO DAILY
losartan-hydrochlorothiazide 100-25 mg Tablet
1 tab PO DAILY
levothyroxine [Synthroid] 125 mcg Tablet
125 mcg PO DAILY
pyridoxine (vitamin B6) 100 mg Tablet
200 mg PO DAILY
metformin 500 mg Tablet Extended Release 24 Hr
500 mg PO QPM
dyrdqlrnb-JZB-lylayzkoulujs Tablet
2 tab PO DAILYPRN PRN (Reason: cough)
rosuvastatin [Crestor] 20 mg Tablet
20 mg PO QPM
cholecalciferol (vitamin D3) 100 mcg (4,000 unit) Capsule
100 mcg PO DAILY
coQ10 (ubiquinol) 100 mg Capsule
100 mg PO DAILY
magnesium oxide 400 mg magnesium Tablet
400 mg PO DAILY
famotidine [Pepcid] 20 mg Tablet
20 mg PO DAILY
fluticasone propionate [Flonase Allergy Relief] 50 mcg/actuation spray,suspension
1 spray intranasal Q12H Qty: 16 0RF
cefdinir 300 mg capsule
300 mg PO BID Qty: 10 0RF
doxycycline hyclate 100 mg capsule
100 mg PO BID Qty: 10 0RF
Probiotic 10 billion cell capsule
10,000 mmu cells PO DAILY Qty: 10 0RF
cefdinir 300 mg capsule
300 mg PO BID Qty: 14 0RF
Referrals:
Faustina Villasenor DO [Family Provider, Family Practice]
Activity Restrictions/Additional Instructions:
RETURN TO THE EMERGENCY DEPARTMENT ANY FEVER, CHILLS, INTRACTABLE PAIN, INABILITY TO URINATE, INTRACTABLE NAUSEA/VOMITING, WORSENING IN CURRENT SYMPTOMS, OR ANY OTHER CONCERNS
- As discussed that your lab work and urine showed no acute abnormalities. Your ultrasound indicates findings consistent with a likely kidney stone on the left side.
- You should take 600 mg of ibuprofen every 6-8 hours as needed for pain. You can take Tylenol, as well.
- It is important stay well-hydrated. You should continue to strain your urine and take Flomax daily until you passed the stone. Prescription for Zofran has been sent to your pharmacy if needed for persistent nausea.
- Follow-up with your urologist for further evaluation/management to ensure that symptoms improve
Monitor your symptoms closely and return to the emergency department with any acute worsening/new symptoms or any signs of infection
Interventions
Interventions:
*Risk Screen - Suicide Last Done: 03/25/25 09:03
*General Assessment Last Done: 03/25/25 09:03
*Neglect/Abuse Screening Last Done: 03/25/25 09:03
*ED COVID-19 Vaccine History Last Done: 03/25/25 09:03
*Nursing Disposition Last Done: 03/25/25 12:08
QM-Pbutlp-Chwqgfqgjb Assessment Last Done: 03/25/25 10:30
ED-Male Genitourinary Assessment Last Done: 03/25/25 10:30
Discharge Date and Time
Discharge Date/Time: 03/25/25 12:10
Print Language: DOMINICAN
[2025-03-25] MEDS: NSS 1000 IV (10:11)
[2025-03-25] MEDS: TORADOL 15 MG IV (10:12)
[2025-03-25 10:25] LABS: Hematocrit 37.4 % (39.0-52.0); Hemoglobin 13.0 g/dL (13.0-18.0); Mean Corp Hgb Conc. 34.8 g/dL (33.0-37.0); Mean Corpuscular Volume 88.4 fL (80.0-94.0); Nucleated Red Blood Cells % 0 % (-); Platelet Count 191 10^3/uL (130-400); Red Cell Dist. Width 13.1 % (11.5-14.5)
[2025-03-25 10:45] LABS: ALT (SGPT) 46 U/L (0-50); AST (SGOT) 41 U/L (17-59); Albumin 4.5 g/dl (3.5-5.0); Alkaline Phosphatase 106 U/L (38-126); Blood Urea Nitrogen 16 mg/dl (9-20); Calcium 9.2 mg/dl (8.4-10.2); Carbon Dioxide 31 mmol/L (22-30); Chloride 102 mmol/L (98-107); Glucose 126 mg/dl (70-99); Potassium 4.3 mmol/L (3.5-5.1); Sodium 137 mmol/L (135-145); Total Protein 6.8 g/dl (6.3-8.2); eGFR > 60.00
[2025-03-25 11:00] VITALS: BP 137/84
[2025-03-25 11:34] LABS: Urine Character Clear (Clear)
[2025-03-25] MEDS: FLOMAX 0.4 MG PO (11:58)
== END 2025-03-25 12:10 | disposition home or self-care (01) ==
LOC: EMR 09:00
PROVIDERS: Physician Assistant; EMERGENCY PHYSICIAN Emergency Medicine; FAMILY PHYSICIAN Family Medicine
DX: N20.0 Calculus of kidney (principal); E11.9 Type 2 diabetes mellitus without complications; I10 Essential (primary) hypertension; Z87.442 Personal history of urinary calculi; Z87.440 Personal history of urinary (tract) infections; Z79.82 Long term (current) use of aspirin; Z79.84 Long term (current) use of oral hypoglycemic drugs
CPT/HCPCS: 99284; 96374; 96361; 76775; 80053; 81003; 85025

== ENCOUNTER → 2025-04-02 17:59 | Outpatient (REF) | payer MEDICARE, SELFPAY | LOC: RAD 17:59 | PROVIDERS: ATTENDING PHYSICIAN Nurse Practitioner Acute Care; FAMILY PHYSICIAN Family Medicine | DX: M50.30 Other cervical disc degeneration, unspecified cervical region (principal) | CPT/HCPCS: 72050 ==

== ENCOUNTER → 2025-05-08 16:16 | Outpatient (REF) | payer MEDICARE, SELFPAY | LOC: RAD 16:16 | PROVIDERS: ATTENDING PHYSICIAN Nurse Practitioner Gerontology | DX: J06.9 Acute upper respiratory infection, unspecified (principal); R05.9 Cough, unspecified | CPT/HCPCS: 71046 ==

== ENCOUNTER → 2025-05-19 20:28 | Outpatient (REF) | payer MEDICARE, SELFPAY | LOC: MRI 3T 20:28 | PROVIDERS: ATTENDING PHYSICIAN Nurse Practitioner Acute Care | DX: M50.30 Other cervical disc degeneration, unspecified cervical region (principal) | CPT/HCPCS: 72141 ==

== ENCOUNTER → 2025-05-28 18:12 | Outpatient (REF) | payer MEDICARE, SELFPAY | LOC: RAD 18:12 | PROVIDERS: ATTENDING PHYSICIAN Nurse Practitioner Gerontology; FAMILY PHYSICIAN Family Medicine | DX: M54.41 Lumbago with sciatica, right side (principal) | CPT/HCPCS: 72110 ==

== ENCOUNTER → 2025-06-11 17:18 | Outpatient (REF) | payer MEDICARE, SELFPAY | LOC: RAD 17:18 | PROVIDERS: ATTENDING PHYSICIAN Nurse Practitioner Acute Care; FAMILY PHYSICIAN Family Medicine | DX: Z98.1 Arthrodesis status (principal); M47.816 Spondylosis without myelopathy or radiculopathy, lumbar region; M51.34 Other intervertebral disc degeneration, thoracic region | CPT/HCPCS: 72110 ==

== ENCOUNTER → 2025-07-02 08:40 | Outpatient (REF) | payer MEDICARE, SELFPAY | LOC: MRI 08:40 | PROVIDERS: ATTENDING PHYSICIAN Nurse Practitioner Acute Care; FAMILY PHYSICIAN Family Medicine | DX: M47.816 Spondylosis without myelopathy or radiculopathy, lumbar region (principal); M51.34 Other intervertebral disc degeneration, thoracic region; Z98.1 Arthrodesis status | CPT/HCPCS: 72148 ==

== ENCOUNTER → 2025-07-07 20:40 | Outpatient (REF) | payer MEDICARE, SELFPAY | LOC: PAVMRI 20:40 | PROVIDERS: ATTENDING PHYSICIAN Nurse Practitioner Acute Care; FAMILY PHYSICIAN Family Medicine | DX: M51.34 Other intervertebral disc degeneration, thoracic region (principal); Z98.1 Arthrodesis status; M47.816 Spondylosis without myelopathy or radiculopathy, lumbar region | CPT/HCPCS: 72146 ==

== ENCOUNTER → 2025-07-31 16:46 | Outpatient (REF) | payer MEDICARE, SELFPAY | LOC: RAD 16:46 | PROVIDERS: ATTENDING PHYSICIAN Family Medicine | DX: N28.1 Cyst of kidney, acquired (principal) | CPT/HCPCS: 74170; Q9967 ==

== ENCOUNTER → 2025-08-07 18:15 | Outpatient (REF) | payer MEDICARE, SELFPAY | LOC: RAD 18:15 | PROVIDERS: ATTENDING PHYSICIAN Nurse Practitioner Acute Care; FAMILY PHYSICIAN Family Medicine | DX: M47.816 Spondylosis without myelopathy or radiculopathy, lumbar region (principal); M51.34 Other intervertebral disc degeneration, thoracic region; M48.04 Spinal stenosis, thoracic region; M43.25 Fusion of spine, thoracolumbar region | CPT/HCPCS: 72082 ==

== ENCOUNTER → 2025-08-12 13:29 | Outpatient (REF) | payer MEDICARE, SELFPAY | LOC: HWRAD 13:29 | PROVIDERS: ATTENDING PHYSICIAN Nurse Practitioner Acute Care; FAMILY PHYSICIAN Family Medicine | DX: M47.816 Spondylosis without myelopathy or radiculopathy, lumbar region (principal); M51.34 Other intervertebral disc degeneration, thoracic region; M48.04 Spinal stenosis, thoracic region; M43.25 Fusion of spine, thoracolumbar region | CPT/HCPCS: 72128; 72131 ==